=== PATIENT | female | born 1970 | race African-American/Black ===

== ENCOUNTER 2017-08-12 18:39 | Emergency (ER) | payer OTHER ==
[~2017-08-12] VITALS: Ht 167.6 cm; Wt 77.6 kg
--- NOTE | 2017-08-12 18:51 | ED.ADGEN ---
Adult General Chief Complaint Chief Complaint ". I ve had pin and needle feeling in my feet yesterday.. but it is gone now... and now I got the red area under my Rt. arm..." " I just started a new job ... 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 and now has Rt. axillary cellulitis. Pt. has long hx of DJD and Lower spinal disc dz. Pt. denies problems with defecation or urination. Currently the pins and needle sensation is gone. DTRs are +2 at patella and ankle. Distal neurovascular intact. Feet are slightly dry. Patient does have an area of 8 x 8 cm of cellulitis under right arm where she's been shaving her armpits. Patient just started a new job at [employer] in the office. Patient denies any history immunosuppression. Patient denies other medical issues. Patient will be following at [facility].. Review of Systems Review of Systems Constitutional: Denies fever or chills [] Eyes: Denies change in visual acuity, redness, or eye pain [] HENT: Denies nasal congestion or sore throat [] Respiratory: Denies cough or shortness of breath [] Cardiovascular: No additional information not addressed in HPI [] GI: Denies abdominal pain, nausea, vomiting, bloody stools or diarrhea [] : Denies dysuria or hematuria [] Musculoskeletal: Denies back pain or joint pain [] Integument: Denies cellulitis right axillary Neurologic: Denies headache, focal weakness or sensory changes []complaints of pins and needles and feet. Endocrine: Denies polyuria or polydipsia [] All other systems were reviewed and found to be within normal limits, except as documented in this note. Family History Family History Cancer. Current Medications Current Medications Current Medications Medications (Trade) Dose Ordered Sig/Darrell Start Time Stop Time Status Last Admin Dose Admin Trimethoprim/ Sulfamethoxazole (Bactrim Ds) 1 tab 1X ONCE 08/12/17 19:15 08/12/17 19:16 DC 08/12/17 19:08 1 TAB See nursing for home meds. Allergies Allergies Allergies Coded Allergies Type Severity Reaction Last Updated Verified No Known Drug Allergies 08/12/17 No Physical Exam Physical Exam Constitutional: Well developed, well nourished, in acute emotional distress, non -toxic appearance. [] HENT: Normocephalic, atraumatic, bilateral external ears normal, oropharynx moist, no oral exudates, nose normal. [] Eyes: PERRLA, EOMI, conjunctiva normal, no discharge. [] Neck: Normal range of motion, no tenderness, supple, no stridor. [] Cardiovascular:Heart rate regular rhythm, no murmur [] Lungs & Thorax: Bilateral breath sounds clear to auscultation [] Abdomen: Bowel sounds normal, soft, no tenderness, no masses, no pulsatile masses. [] Skin: Warm, dry, no erythema, no rash. [] Findings of cellulitis under right axillary. No adenopathy Back: No tenderness, no CVA tenderness. [] Extremities: No tenderness, no cyanosis, no clubbing, ROM intact, no edema. [] Neurologic: Alert and oriented X 3, normal motor function, normal sensory function, no focal deficits noted. []DTRs +2 patella and Achilles tendon. Psychologic: Affect anxious, judgement normal, mood normal. [] Current Patient Data Vital Signs Vital Signs Date Time Temp Pulse Resp B/P (MAP) Pulse Ox O2 Delivery O2 Flow Rate FiO2 08/12/17 19:10 90 16 115/77 (90) 100 Room Air 08/12/17 18:50 98.5 EKG EKG [] Radiology/Procedures Radiology/Procedures [] Course & Med Decision Making Course & Med Decision Making Pertinent Labs and Imaging studies reviewed. (See chart for details). Stpp shaving axillary areas. Make repair but no shaving. Do not wear anti-perspirant deodorant. May use perfume. Use moist warm compresses. Take Bactrim DS twice day for 10 days. Follow-up at [facility]. May take ibuprofen for discomfort. May need MRI or a myelogram to evaluate lower spinal stenosis and disc disease. We'll need follow-up with neurology and neurosurgery. Must follow-up at [place]. [] Final Impression Final Impression 1. Right axillary cellulitis 2. History of degenerative joint disease and spinal stenosis[] Dragon Disclaimer Dragon Disclaimer This electronic medical record was generated, in whole or in part, using a voice recognition dictation system. KENDALL CONNELLY MD Aug 12, 2017 18:51
[2017-08-12] MEDS ORDERED: IBUP400T18 PO (19:08)
[2017-08-12] MEDS ORDERED: SULF1TAB24 PO (19:08)
[2017-08-12 19:10] VITALS: BP 115/77
[2017-08-12] MEDS ORDERED: SMZ/TMP 800/160MG TABLET. PO ONE (19:15)
== END 2017-08-12 19:12 | disposition home or self-care (01) ==
LOC: ER 18:39
DX: L03.111 Cellulitis of right axilla (principal); R20.2 Paresthesia of skin
CPT/HCPCS: 99283

== ENCOUNTER 2019-12-01 01:05 | Emergency (ER) | payer OTHER ==
[~2019-12-01] VITALS: Ht 167.6 cm; Wt 82.7 kg
[~2019-12-01 01:05] MED LIST: IBUP400T18 PO; SULF1TAB24 PO
--- NOTE | 2019-12-01 01:11 | PHYS DOC ---
Past History Past Medical History: Anxiety, Sciatica, Other Past Surgical History: Hysterectomy Alcohol Use: None Drug Use: None General Adult HPI: HPI: "... This all started .. about 3 days ago.. I woke up with my neck stuck.. and severe spasm in this neck and shoulder.. and the pain radiated down to my fingers in my Lt. hand.. 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 Patient states pain is been persistent for last 3 days. Does have findings of left trapezius spasm. Pain is described as an electrical shock into the left shoulder down to left hand. No history of recent trauma. No history of fever or chills. No history of IV drug use. No history of previous back injury. Patient does have a past medical history of sciatica. Patient is in the [employer] and serving at [employer] [employer]. Patient denies any recent travel outside cancer area. No specific ill contacts. No history of depression. Patient is right-hand dominant. Review of Systems: Review of Systems: Constitutional: Denies fever or chills Eyes: Denies change in visual acuity HENT: Denies nasal congestion or sore throat Respiratory: Denies cough or shortness of breath Cardiovascular: Denies chest pain or edema GI: Denies abdominal pain, nausea, vomiting, bloody stools or diarrhea : Denies dysuria Musculoskeletal: Complaints of neck and back pain Integument: Denies rash Neurologic: Denies headache, focal weakness or sensory changes Endocrine: Denies polyuria or polydipsia Lymphatic: Denies swollen glands Psychiatric: Denies depression or anxiety Heart Score: Risk Factors: Risk Factors: DM, Current or recent (<one month) smoker, HTN, HLP, family history of CAD, obesity. Risk Scores: Score 0 - 3: 2.5% MACE over next 6 weeks - Discharge Home Score 4 - 6: 20.3% MACE over next 6 weeks - Admit for Clinical Observation Score 7 - 10: 72.7% MACE over next 6 weeks - Early Invasive Strategies Family History: Family History: Noncontributory to presentation. Current Medications: Current Meds: See nursing for home meds Allergies: Allergies: Allergies Coded Allergies Type Severity Reaction Last Updated Verified No Known Drug Allergies 08/12/17 No Physical Exam: PE: Constitutional: inacute distress, non-toxic appearance. [] HENT: Normocephalic, atraumatic, bilateral external ears normal, oropharynx moist, no oral exudates, nose normal. Eyes: PERRLA, EOMI, conjunctiva normal, no discharge. [] Neck: Normal range of motion, left trapezius tenderness and muscle spasms, supple, no stridor. [] Cardiovascular:Heart rate regular rhythm, no murmur [] Lungs & Thorax: Bilateral breath sounds equal apex on auscultation [] Abdomen: Bowel sounds normal, soft, no tenderness, no masses, no pulsatile masses. Old surgery scar. Obese Skin: Warm, dry, no erythema, no rash. [] Back: No tenderness, no CVA tenderness. [] Extremities: No tenderness, no cyanosis, no clubbing, ROM intact, no edema. DTRs are +2 patella. Some pain and right sciatica on straight leg lift. +2 DTRs and brachial. Does have deltoid sensation on left Neurologic: Alert and oriented X 3, normal motor function, normal sensory function, no focal deficits noted. [] Psychologic: Affect anxious, judgement normal, mood normal. [] EKG: EKG: [] Radiology/Procedures: Radiology/Procedures: [][address] [address] IMAGING REPORT Signed PATIENT: DARRYNMay ACCOUNT: [id number] : 1970 LOCATION: ER AGE: 49 SEX: F EXAM STATUS: REG ER ORD. PHYSICIAN: KENDALL CONNELLY MD REASON: NECK PAIN PROCEDURE: CT CERVICAL SPINE WO CONTRAST EXAM: CT cervical spine without contrast INDICATION: Neck pain COMPARISON: None TECHNIQUE: Axial CT imaging through the cervical spine without contrast. Coronal and sagittal reformats of the cervical spine were obtained One or more of the following individualized dose reduction techniques were utilized for this examination: 1. Automated exposure control 2. Adjustment of the mA and/or kV according to patient size 3. Use of iterative reconstruction technique. FINDINGS: No acute fracture. Alignment is normal. The craniocervical junction and atlantoaxial interval are maintained. Disc spaces and facet joints are maintained. There are small anterior osteophytes at C5-C6. No bony canal or foraminal narrowing. Prevertebral soft tissue is normal. IMPRESSION: No acute osseous abnormality. Electronically signed by: Debo Ramos MD (12/01/2019 2:20 AM) [id number] DICTATED AND SIGNED BY: DEBO RAMOS MD DATE: 12/01/190 CC: MARY PIKE; KENDALL CONNELLY MD ~ Course & Med Decision Making: Course & Med Decision Making Pertinent Labs and Imaging studies reviewed. (See chart for details) Patient is ice packs as needed. Patient use gentle massage. Patient take Tylenol and ibuprofen for pain. For marked pain may take Vicoprofen up to 4 times a day. For the spasms may take Flexeril 10 mg up to 3 times a day. Patient follow-up with primary. Patient consider follow-up orthopedics/neurosurgery. Patient use a small pillow support neck when attempting to sleep. Patient issued a CT disc of her neck, Take with her on follow-up appointments. Impression: 1. 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 History of sciatica 3. Osteophytes at C5-6 [] Dragon Disclaimer: Dragon Disclaimer: This electronic medical record was generated, in whole or in part, using a voice recognition dictation system. Departure Departure: Disposition: MD HOME SELF CARE/HOMELESS Condition: STABLE Referrals: MARY PIKE (PCP) Scripts Cyclobenzaprine Hcl (CYCLOBENZAPRINE HCL) 10 Mg Tablet 10 MG PO TID PRN PRN for muscle spasms, #30 TAB Prov: KENDALL CONNELLY MD 12/01/19 Hydrocodone/Ibuprofen (HYDROCODONE-IBUPROFEN 7.5-200 ) 1 Each Tablet 1 TAB PO PRN Q6HRS PRN for PAIN, #30 TAB 0 Refills Prov: KENDALL CONNELLY MD 12/01/19 KENDALL CONNELLY MD Dec 01, 2019 01:11
[2019-12-01 01:19] VITALS: BP 121/103
[2019-12-01] MEDS ORDERED: HYDR-1179 PO (01:44)
[2019-12-01] MEDS: KETOROLAC 60 MG/2 ML VIAL. IM ONE (01:52)
[2019-12-01] MEDS: ORPHENADRINE CITRATE 60 MG/2 ML VIAL. IM ONE (01:52)
[2019-12-01] MEDS ORDERED: CYCL-331 PO (02:03)
--- NOTE | 2019-12-01 02:23 | RAD ---
EXAM: CT cervical spine without contrast INDICATION: Neck pain COMPARISON: None TECHNIQUE: Axial CT imaging through the cervical spine without contrast. Coronal and sagittal reformats of the cervical spine were obtained One or more of the following individualized dose reduction techniques were utilized for this examination: 1. Automated exposure control 2. Adjustment of the mA and/or kV according to patient size 3. Use of iterative reconstruction technique. FINDINGS: No acute fracture. Alignment is normal. The craniocervical junction and atlantoaxial interval are maintained. Disc spaces and facet joints are maintained. There are small anterior osteophytes at C5-C6. No bony canal or foraminal narrowing. Prevertebral soft tissue is normal. IMPRESSION: No acute osseous abnormality. Electronically signed by: Debo Ramos MD (12/01/2019 2:20 AM) [id number]
== END 2019-12-01 02:35 | disposition home or self-care (01) ==
LOC: ER 01:05
DX: G54.2 Cervical root disorders, not elsewhere classified (principal); M54.31 Sciatica, right side; M25.78 Osteophyte, vertebrae; Z90.710 Acquired absence of both cervix and uterus
CPT/HCPCS: 72125; 96372; 99284; J1885; J2360